=== PATIENT | female | born 1970 | race African-American/Black ===

== ENCOUNTER 2024-09-25 10:00 | Emergency (ER) | payer MEDICAID, OTHER ==
[~2024-09-25] VITALS: Ht 165.1 cm; Wt 57.0 kg
[2024-09-25 10:02] VITALS: O2SAT 100
[2024-09-25 10:58] VITALS: BP 169/92; PULSE 98; RESP 16; TEMP 98; O2SAT 94
[2024-09-25] MEDS ORDERED: METF-414 MT (11:55)
[2024-09-25] MEDS ORDERED: GLIP10TA17 MT (11:55)
[2024-09-25] MEDS ORDERED: PIOG30TA70 MT (11:55)
[2024-09-25] MEDS ORDERED: FLUC150T46 MT (11:55)
== END 2024-09-25 12:13 | disposition home or self-care (01) ==
LOC: ER 10:00
DX: B37.31 Acute candidiasis of vulva and vagina (principal); E11.9 Type 2 diabetes mellitus without complications; Z79.84 Long term (current) use of oral hypoglycemic drugs; Z76.0 Encounter for issue of repeat prescription
CPT/HCPCS: 99283